=== PATIENT | female | born 1990 | race Hispanic/Latino ===

== ENCOUNTER 2017-08-18 09:44 | Inpatient (IN) | payer OTHER, MEDICAID ==
[2017-08-17 17:24] LABS: HEMATOCRIT 36.3 % (36-48); MEAN CORPUSCULAR HEMOGLOBIN 29.5 pg (27.0-33.0); MEAN CORPUSCULAR HGB CONC 34.4 g/dL (32.0-36.0); MEAN CORPUSCULAR VOLUME 85.8 fL (79-99); NUCLEATED RED BLOOD CELLS 0.1 % (0.0-0.19); PLATELET COUNT (AUTO) 277 K/uL (130-400); RED BLOOD CELL COUNT(AUTO) 4.23 MIL/uL (4.00-5.50); RED CELL DISTRIBUTION WIDTH 15.1 % (11.0-15.5); WHITE BLOOD COUNT (AUTO) 12.1 K/uL (4.8-10.8)
[2017-08-18] VITALS (17 sets, daily range): BP systolic 102–117; BP diastolic 52–68
[~2017-08-18 09:44] MED LIST: PNV91TAB3 PO
[2017-08-18] MEDS ORDERED: CLINDAMYCIN 900 MG/D5% WATER 50 ML IVPB PRN (10:00)
[2017-08-18] MEDS ORDERED: LACTATED RINGERS 1000ML 1,000 ML IV SCH (10:00)
[2017-08-18] MEDS ORDERED: GENTAMICIN SULFATE 240 MG in SODIUM CHLORIDE 0.9% 100 ML IV PRN (10:00)
[2017-08-18 10:21] LABS: APPEARANCE,URINE Cloudy (CLEAR); BILIRUBIN,URINE Negative (NEGATIVE); COLOR,URINE Yellow (YELLOW); GLUCOSE, URINE (UA) Negative (NEGATIVE); KETONES,URINE Negative (NEGATIVE); LEUKOCYTE ESTERASE ,URINE Small (NEGATIVE); NITRATE,URINE Negative (NEGATIVE); OCCULT BLOOD,URINE Negative (NEGATIVE); PROTEIN,URINE Trace (NEGATIVE)
[2017-08-18 10:31] LABS: BACTERIA,URINE Many /HPF (None Seen); RBC,URINE 0-1 /HPF (0-1); SQUAMOUS EPITHELIAL CELL,UR Moderate /HPF (0-2); WBC,URINE 0-1 /HPF (0-1)
[2017-08-18] MEDS ORDERED: DURAMORPH PF1 MG/ML 10ML AMP IV ONE (11:45)
[2017-08-18] MEDS ORDERED: MIDAZOLAM HCL 1 MG/ML 2ML VIAL ONE (12:28)
[2017-08-18] MEDS ORDERED: OXYTOCIN 10 UNIT/1ML 10ML VIAL ONE (12:42)
[2017-08-18] MEDS ORDERED: ONDANSETRON HCL 4 MG/2 ML VIAL ONE (12:42)
[2017-08-18] MEDS ORDERED: OXYTOCIN-LR 20 UNITS/1000 ML 1,000 ML IV PRN (12:45)
[2017-08-18] MEDS ORDERED: PROMETHAZINE HCL 25 MG/ML 1ML AMPULE IM PRN ×2 (12:45→17:45)
[2017-08-18] MEDS ORDERED: MEPERIDINE-PF 75 MG/ML SYG IM PRN (12:45)
[2017-08-18] MEDS ORDERED: SODIUM CHLORIDE 0.9% 10 ML VIAL IVP PRN (12:45)
[2017-08-18] MEDS ORDERED: EPHEDRINE SULFATE 50 MG/ML AMPULE IVP PRN (17:45)
[2017-08-18] MEDS ORDERED: MORPHINE SULFATE 2 MG/ML 1ML SYG IVP PRN (17:45)
[2017-08-18] MEDS ORDERED: HYDROCODONE/ACETAMINOPHEN 5/325 MG TAB PO PRN ×2 (17:45)
[2017-08-18] MEDS ORDERED: DiphenhydrAMINE HCL 50 MG/ML VIAL IVP PRN (17:45)
[2017-08-18] MEDS ORDERED: NALOXONE HCL 0.4 MG/1 ML ML IVP PRN ×2 (17:45)
[2017-08-18] MEDS ORDERED: METOCLOPRAMIDE 10 MG/2 ML VIAL IVP PRN (17:45)
[2017-08-18] MEDS ORDERED: ONDANSETRON HCL 4 MG/2 ML 8 MG in SODIUM CHLORIDE 0.9% 50 ML IVP NR (17:45)
[2017-08-18] MEDS ORDERED: ONDANSETRON HCL MDV 20ML 2 MG/ML VIAL IVP PRN ×2 (18:00)
[2017-08-18] MEDS: DEXTROSE 5 %-0.45 % NACL 1,000 ML IV PRN (20:46)
[2017-08-19] VITALS (7 sets, daily range): BP systolic 105–116; BP diastolic 57–71
[2017-08-19] MEDS: DEXTROSE 5 %-0.45 % NACL 1,000 ML IV PRN (03:27)
[2017-08-19 06:52] LABS: HEMATOCRIT 34.9 % (36-48); MEAN CORPUSCULAR HEMOGLOBIN 30.1 pg (27.0-33.0); MEAN CORPUSCULAR HGB CONC 34.3 g/dL (32.0-36.0); MEAN CORPUSCULAR VOLUME 87.6 fL (79-99); PLATELET COUNT (AUTO) 217 K/uL (130-400); RED BLOOD CELL COUNT(AUTO) 3.98 MIL/uL (4.00-5.50); RED CELL DISTRIBUTION WIDTH 15.2 % (11.0-15.5); WHITE BLOOD COUNT (AUTO) 12.1 K/uL (4.8-10.8)
[2017-08-19] MEDS ORDERED: LANOLIN 30GM OINTMENT TP PRN (07:30)
[2017-08-19] MEDS ORDERED: ACETAMINOPHEN-CODEINE 300/30MG TAB PO PRN (07:30)
[2017-08-19] MEDS ORDERED: BISACODYL 10 MG SUPP.RECT RC PRN (07:30)
[2017-08-19] MEDS ORDERED: ACETAMINOPHEN EXTRA STRENGTH 500 MG TABLET PO PRN (07:30)
[2017-08-19 07:32] LABS: HEPATITIS Bs ANTIGEN SCREEN P Negative (Negative)
[2017-08-19] MEDS: DOCUSATE SODIUM 100 MG CAP PO SCH ×2 (09:36→21:42)
[2017-08-19] MEDS: SIMETHICONE 80 MG TAB.CHEW PO PRN ×2 (09:36→21:42)
[2017-08-19] MEDS: IBUPROFEN 600 MG TABLET PO PRN ×3 (09:36→23:17)
[2017-08-19] MEDS: DIPH,PERTUSS(ACELL),TET VAC/PF 0.5 ML VIAL IM SCH (16:01)
[2017-08-19] MEDS ORDERED: MEASLES/MUMPS/RUBELLA VACCINE, LIVE 0.5 ML/VIAL SQ ONE (17:30)
[2017-08-19] MEDS: MEASLES/MUMPS/RUBELLA VACCINE, LIVE 0.5 ML/VIAL SQ SCH (18:08)
[2017-08-20 04:36] VITALS: BP 118/70
[2017-08-20 07:30] VITALS: BP 111/71
[2017-08-20] MEDS: DIPH,PERTUSS(ACELL),TET VAC/PF 0.5 ML VIAL IM SCH (07:30)
[2017-08-20] MEDS: MEASLES/MUMPS/RUBELLA VACCINE, LIVE 0.5 ML/VIAL SQ SCH (07:30)
[2017-08-20] MEDS: SIMETHICONE 80 MG TAB.CHEW PO PRN (09:21)
[2017-08-20] MEDS: IBUPROFEN 600 MG TABLET PO PRN (09:22)
[2017-08-20] MEDS: DOCUSATE SODIUM 100 MG CAP PO SCH (09:22)
[2017-08-20 11:19] VITALS: BP 116/80
== END 2017-08-20 13:45 | disposition home or self-care (01) | DRG 766 ==
LOC: LDH 09:44 → EDSTATUS 12:00 → WSH 13:45
PROVIDERS: ADMIT Obstetrics & Gynecology; ATTEND Obstetrics & Gynecology
PROC: 3E0234Z Introduction of Serum, Toxoid and Vaccine into Muscle, Percutaneous Approach (ICD-10-PCS; 2017-08-18)
PROC: 3E0134Z Introduction of Serum, Toxoid and Vaccine into Subcutaneous Tissue, Percutaneous Approach (ICD-10-PCS; 2017-08-18)
PROC: 10D00Z1 Extraction of Products of Conception, Low, Open Approach (ICD-10-PCS; principal; 2017-08-18 12:00)
DX: O34.211 Maternal care for low transverse scar from previous cesarean delivery (principal); Z23 Encounter for immunization; Z37.0 Single live birth; Z3A.39 39 weeks gestation of pregnancy
CPT/HCPCS: 36415; 59510; 81001; 85027; 86592; 86850; 86900; 86901; 87340; 90707; 90715; A4344; A4450; A4606; J1580; J2250; J2274; J2405; J2590; J3490; J7120

== ENCOUNTER 2018-05-23 12:40 | Emergency (ER) | payer MEDICAID, OTHER | END 2018-05-23 14:13 | disposition home or self-care (01) | LOC: EDH 12:40 | DX: J03.90 Acute tonsillitis, unspecified (principal); Z88.0 Allergy status to penicillin; Z98.890 Other specified postprocedural states | CPT/HCPCS: 81025; 87880 ==

== ENCOUNTER 2018-12-27 15:32 | Emergency (ER) | payer OTHER | END 2018-12-27 17:51 | disposition home or self-care (01) | LOC: EDH 15:32 | DX: R10.13 Epigastric pain (principal); Z88.0 Allergy status to penicillin; Z98.890 Other specified postprocedural states ==

== ENCOUNTER 2021-04-26 10:56 | Emergency (ER) | payer OTHER ==
[~2021-04-26] VITALS: Ht 152.4 cm; Wt 61.2 kg
[2021-04-26] MEDS ORDERED: IBUP-2070 PO (12:38)
[2021-04-26] MEDS ORDERED: BROM237S PO (12:38)
[2021-04-26] MEDS ORDERED: PSEU120T62 PO (12:38)
[2021-04-26 13:00] VITALS: BP 124/74
== END 2021-04-26 13:10 | disposition home or self-care (01) ==
LOC: EDH 10:56
DX: R50.9 Fever, unspecified (principal); R05.9 Cough, unspecified; R09.81 Nasal congestion; Z20.822 Contact with and (suspected) exposure to COVID-19; E11.9 Type 2 diabetes mellitus without complications; Z88.0 Allergy status to penicillin; Z79.1 Long term (current) use of non-steroidal anti-inflammatories (NSAID)
CPT/HCPCS: 87635; 87804 ×2; 99283; C9803

== ENCOUNTER 2023-10-31 06:05 | Emergency (ER) | payer BC, OTHER ==
[~2023-10-31] VITALS: Ht 152.4 cm; Wt 106.6 kg
[~2023-10-31 06:05] MED LIST changes: +BROM237S PO; +IBUP-2070 PO; +PSEU120T62 PO
[2023-10-31 06:52] LABS: COVID19 (SARS ANTIGEN RAPID) PRESUMPTIVE NEGATIVE (NEGATIVE); INFLUENZA TYPE A Negative For Type A (NEGATIVE); INFLUENZA TYPE B Negative For Type B (NEGATIVE)
[2023-10-31] MEDS ORDERED: CLIN-141 PO (07:02)
[2023-10-31 07:09] VITALS: BP 118/64; PULSE 92; RESP 17; O2SAT 99
[2023-10-31 07:15] LABS: RAPID GROUP A STREP positive (NEGATIVE)
== END 2023-10-31 07:47 | disposition home or self-care (01) ==
LOC: EDH 06:05
DX: J02.0 Streptococcal pharyngitis (principal); Z20.822 Contact with and (suspected) exposure to COVID-19; Z88.0 Allergy status to penicillin
CPT/HCPCS: 87426; 87804; 87880